=== PATIENT | male | born 1955 | race Two or more races ===

== ENCOUNTER 2019-11-06 11:30 | Inpatient (IN) | payer OTHER ==
[~2019-11-06] VITALS: Ht 172.7 cm; Wt 86.2 kg
[2019-11-08] MEDS ORDERED: SYNTHROID112 MCG PO (14:55)
[2019-11-08] MEDS ORDERED: ULTRAM50 MG PO (14:56)
[2019-11-08] MEDS ORDERED: ZOCOR20 MG PO (14:56)
[2019-11-13] MEDS ORDERED: LEVO-T50 MCG PO (08:57)
[2019-11-13] MEDS ORDERED: SIMVASTATIN20 MG PO (08:58)
[2019-11-16] MEDS ORDERED: OXYC1TAB9 PO (16:28)
[2019-11-16] MEDS ORDERED: IMODIUM A-D2 MG PO (16:30)
== END 2019-11-16 21:24 | disposition home or self-care (01) | DRG 331 ==
LOC: ADM 11:30 → EDSTATUS 11-08 11:45 → ADM 11-08 11:45 → SURH 11-13 07:00 → O/R 11-13 07:01 → SURH 11-13 07:01
PROVIDERS: ADMIT Colon & Rectal Surgery; ATTEND Colon & Rectal Surgery
PROC: 0DTP4ZZ Resection of Rectum, Percutaneous Endoscopic Approach (ICD-10-PCS; 2019-11-13)
PROC: 07TB4ZZ Resection of Mesenteric Lymphatic, Percutaneous Endoscopic Approach (ICD-10-PCS; 2019-11-13)
PROC: 0DJD8ZZ Inspection of Lower Intestinal Tract, Via Natural or Artificial Opening Endoscopic (ICD-10-PCS; 2019-11-13)
PROC: 0D1B4Z4 Bypass Ileum to Cutaneous, Percutaneous Endoscopic Approach (ICD-10-PCS; principal; 2019-11-13 07:00)
DX: C20 Malignant neoplasm of rectum (principal); K63.89 Other specified diseases of intestine; R59.0 Localized enlarged lymph nodes; E03.8 Other specified hypothyroidism

== ENCOUNTER 2021-01-23 07:26 | Day surgery (SDC) | payer OTHER ==
[~2021-01-23 07:26] MED LIST: IMODIUM A-D2 MG PO; LEVO-T50 MCG PO; OXYC1TAB9 PO; SIMVASTATIN20 MG PO; SYNTHROID112 MCG PO; ULTRAM50 MG PO; ZOCOR20 MG PO
== END 2021-01-23 13:30 | disposition home or self-care (01) ==
LOC: AMB-ENDOS 07:26
PROVIDERS: ATTEND Colon & Rectal Surgery
DX: K62.89 Other specified diseases of anus and rectum (principal); Z20.822 Contact with and (suspected) exposure to COVID-19

== ENCOUNTER 2021-02-23 10:30 | Inpatient (IN) | payer OTHER ==
[~2021-02-23] VITALS: Ht 170.2 cm; Wt 83.0 kg
[2021-02-25] MEDS ORDERED: OMEPRAZOLE40 MG (09:44)
[2021-02-25] MEDS ORDERED: TRAM1TAB98 (09:44)
[2021-02-25] MEDS ORDERED: CENTRUM SILVER1 EAC1 (09:44)
[2021-02-25] MEDS ORDERED: LOPERAMIDE2 MG (09:44)
[2021-02-25] MEDS ORDERED: HYDROCORTISO453.6 GM (09:44)
[2021-02-25] MEDS ORDERED: VITAMIN D3250 MCG (09:44)
[2021-02-25] MEDS ORDERED: PAIN RELIEVER500 M5 (09:44)
[2021-02-25] MEDS ORDERED: MOMETASONE FURO60 ML (09:45)
[2021-02-25] MEDS ORDERED: SILDENAFIL CITR50 MG (09:45)
[2021-02-25] MEDS ORDERED: CENTRUM MEN'S1 EACH (09:45)
== END 2021-02-27 18:03 | disposition home or self-care (01) | DRG 330 ==
LOC: EDSTATUS 10:30 → ADM 10:30 → O/R 02-25 07:05 → SURH 02-25 07:05
PROVIDERS: ADMIT Colon & Rectal Surgery; ATTEND Colon & Rectal Surgery
PROC: 3E0F7SF Introduction of Other Gas into Respiratory Tract, Via Natural or Artificial Opening (ICD-10-PCS; 2021-02-25)
PROC: 0DSB4ZZ Reposition Ileum, Percutaneous Endoscopic Approach (ICD-10-PCS; principal; 2021-02-25 10:30)
DX: C20 Malignant neoplasm of rectum (principal); K92.1 Melena